=== PATIENT | male | born 1955 ===

== ENCOUNTER 2024-03-26 06:21 | Inpatient (IN) | payer OTHER, SELFPAY ==
[2024-03-26] VITALS (19 sets, daily range): BP systolic 110–127; BP diastolic 70–100; BMI 29.1
[2024-03-26 01:52] LABS: % Basophils 0.3 % (0-2); % Eosinophils 3.2 % (0-6); % Immature Granulocytes 0.3 % (0-0.5); % Lymphocytes 21.3 % (20.5-51.1); % Monocytes 13.4 % (1.7-9.3); % Neutrophils 61.5 % (42.2-75.2); Absolute Eosinophils 0.2 10^3/uL (0-0.7); Absolute Lymphocytes 1.5 10^3/uL (1.2-3.4); Absolute Monocytes 0.9 10^3/uL (0.1-0.6); Absolute Neutrophils 4.3 10^3/uL (1.4-6.5); Hematocrit 39.1 % (39.0-52.0); Hemoglobin 13.9 g/dL (13.0-18.0); Mean Corp Hgb Conc. 35.5 g/dL (33.0-37.0); Mean Corpuscular Hgb 32.9 pg (27.0-31.0); Mean Corpuscular Volume 92.7 fL (80.0-94.0); Mean Platelet Volume 11.1 fL (7.4-10.4); Nucleated Red Blood Cells % 0 % (-); Platelet Count 211 10^3/uL (130-400); Red Blood Cell Count 4.22 10^6/uL (4.70-6.10); Red Cell Dist. Width 12.9 % (11.5-14.5); White Blood Cell Count 6.9 10^3/uL (4.8-10.8)
[2024-03-26 02:18] LABS: ALT (SGPT) 29 U/L (0-50); AST (SGOT) 29 U/L (17-59); Alkaline Phosphatase 122 U/L (38-126); Blood Urea Nitrogen 15 mg/dl (9-20); Calcium 9.2 mg/dl (8.4-10.2); Carbon Dioxide 21 mmol/L (22-30); Chloride 106 mmol/L (98-107); Glucose 114 mg/dl (70-99); Potassium 4.1 mmol/L (3.5-5.1); Sodium 138 mmol/L (135-145); Total Bilirubin 0.2 mg/dl (0.2-1.3); Total Protein 6.3 g/dl (6.3-8.2); eGFR > 60.00
--- NOTE | 2024-03-26 03:12 | ED.GENMED ---
History of Present Illness
General
Chief Complaint: Rectal Bleeding
Source: patient, spouse and other (Colonoscopy September 2019 showing internal hemorrhoids, single large mouth diverticulum.)
Exam Limitations: none
Time Seen by Provider: 03/26/24 02:59
Nursing documentation reviewed up to this point in time: agreed with
History of Present Illness
History of Present Illness:
This is a 69-year-old gentleman with history of epilepsy, palpitations maintained on Dilantin and atenolol. He complains of large amount of bright red rectal bleeding that initially began yesterday morning after passing a somewhat hard stool. He
was evaluated by his PCP yesterday morning who recommended outpatient blood work and urgent GI evaluation. He presents to the ED tonight after passing a large loose bloody bowel movement this evening and then another moderate-sized bloody bowel
movement since arrival to the ED. He admits to mild crampy lower abdominal discomfort.
No prior history of GI bleeds. He takes no anticoagulants.
Previous colonoscopy September 2019 showing internal hemorrhoids and a single large mouth diverticulum.
He denies dizziness nor lightheadedness, no chest pain or cough no shortness of breath.
Past History
Past History
ED Past Medical History: Arrthythmia (History of palpitations/rapid heart rate. Maintained on atenolol.), Cancer (Melanoma of arm) and Seizures
ED Past Surgical History: Other (Melanoma of arm with right axillary node dissection 2006)
Social History
Tobacco: Non-smoker
Alcohol: Daily
Drug: None
Personal:
Living: with family
Employment: Retired
Family History
Family History: Cancer (Colon cancer in father)
Phy Exam
Physical Exam
Physical Exam:
GENERAL: Alert , in no apparent distress. 69-year-old gentleman appears his stated age, awake and alert, pleasant, appears in no acute distress. is accompanying.
EYE: pupils equal and reactive. anicteric
NECK: Supple, nontender, no meningismus, no significant adenopathy.
ENT: oral mucosa is moist. No rhinorrhea.
CARDIAC: Regular rate and rhythm. no murmur.
LUNGS: Clear breath sounds bilaterally, no acute respiratory distress, no wheezes/rales/rhonchi
ABDOMEN: Soft, nondistended, mild generalized tenderness to the lower abdomen with deep palpation only, no r/g, no cvat. normoactive BS. Rectal exam reveals maroon to bright red blood per vault that is heme positive. No rectal masses.
NEUROLOGICAL: Alert and oriented x3, no focal neuro deficits.
SKIN: Warm and dry, normal color, skin intact. No rash.
MUSCULOSKELETAL: No C/C/E. peripheral pulses are full and equal b/l. No palpable tenderness.
PSYCH: Normal and appropriate interaction.
Course
Orders/Labs/Results
Orders:
Orders
03/26/24 01:44
CMP [Comprehensive Metabolic Panel] Urgent
Complete Blood Count/With Diff Urgent
03/26/24 03:11
CT Angio Abd/Pelvis w/wo IV [CT Abd/pelvis Angio W/wo Iv] Urgent
Comment:
Reason For Exam: rectal bleeding, lower abd pain
0.9% Sodium Chloride 1000 ml [Nss] 1,000 ml IV BOLUS
03/26/24 03:19
Type And Crossmatch [Type+Screen] Urgent
03/26/24 04:07
ABO2 Urgent
BBK Wristband Number:
Associate notified that ABO2 has been ordered: [id number]
Date: 03/26/24
Time: 03:59
Office Runner ID: [id number]
Abnormal Lab Results
03/26/24
01:44
RBC 4.22 L 10^6/uL
(4.70-6.10)
MCH 32.9 H pg
(27.0-31.0)
MPV 11.1 H fL
(7.4-10.4)
Absolute Monos (auto) 0.9 H 10^3/uL
(0.1-0.6)
Monocytes % 13.4 H %
(1.7-9.3)
Carbon Dioxide 21 L mmol/L
(22-30)
Glucose 114 H mg/dl
(70-99)
03/26/24 01:44
03/26/24 01:44
Vital Signs
Initial and Last Documented VS:
Initial Vital Signs
Temp Pulse Resp BP Pulse Ox
98.5 F 110 20 122/84 97
03/26/24 01:34 03/26/24 01:34 03/26/24 01:34 03/26/24 01:34 03/26/24 01:34
Last Documented Vital Signs
Temp Pulse Resp BP Pulse Ox
98.5 F 82 17 124/72 99
03/26/24 01:34 03/26/24 04:30 03/26/24 04:30 03/26/24 04:00 03/26/24 04:30
MDM/Problems Addressed
Differential Diagnosis Includes:
Patient presents with acute rectal bleeding, having passed 3 large bright red to maroon liquid stools. Concern for internal hemorrhoidal bleeding, other consideration is diverticular bleed.
Thus far hemodynamically stable.
CBC within normal limits.
Will initiate IV fluids. Will check CT angiogram of the abdomen and pelvis.
Due to increased bleeding this evening passing to large bloody bowel movements tonight and continued crampy abdominal pain, concern for continued bleeding and patient is at risk for acute blood loss anemia/symptomatic anemia.
*Radiology
Radiology exam reviewed: radiology read reviewed (CTA abdomen/pelvis somewhat limited without arterial phase imaging. No definite contrast extravasation within the bowel to suggest active hemorrhage. No diverticulitis.)
*Pulse Oximetry
Patient hypoxic: no
*Grain Operations Manager Interpretation
Rate: normal
Interpretation: normal
Rhythm: sinus
*Critical Care Note
Total Time (30-74mins, 75-104mins- exclusive of procedures): Not Applicable
ED Attending Note
-
Portions of this chart may have been created with voice recognition software.� Occasional wrong word or��sound alike� substitutions may have occurred due to the inherent limitations of voice recognition software.
Discharge Plan
Departure
Patient Disposition: Admit
Date of Disposition: 03/26/24
Time of Disposition: 05:36
Admit to: Med/Surg
Admit to doctor: Darío
Presentation/result/management discussed w/ accepting MD/DO: Hospitalist
Condition: Fair
Discharge Problem:
Acute lower gastrointestinal bleeding
Prescriptions:
No Action
atenolol 25 mg Tablet
25 mg PO DAILY
phenytoin sodium extended [Dilantin Extended] 100 mg Capsule
300 mg PO DAILY
Referrals:
Yariel Hopper PA [Family Provider] -
Interventions
Interventions:
*Risk Screen - Suicide Last Done: 03/26/24 01:34
*General Assessment Last Done: 03/26/24 03:36
*Neglect/Abuse Screening Last Done: 03/26/24 01:34
ED- Fall Risk Assessment Last Done: 03/26/24 03:33
*ED COVID-19 Vaccine History Last Done: 03/26/24 03:33
RO-Zrrqmi-Voqzavoyex Assessment Last Done: 03/26/24 03:33
ED- Cardiac Assessment Last Done: 03/26/24 03:33
ED- Pulmonary Assessment Last Done: 03/26/24 03:33
Discharge Date and Time
Print Language: [id number]
[2024-03-26] MEDS: NSS 1000 IV (03:31)
--- NOTE | 2024-03-26 05:58 | HPS.HSE ---
Family Physician
-
Family Physician: RUDDY Gallo
Chief Complaint
-
BRBPR
History of Present Illness
Patient is a 69y M with PMH significant for hypertension, seizure disorder and melanoma who presents to ED complaining of BRBPR. Patient states that he developed crampy abdominal discomfort / abrupt urge to move his bowels early in the day
today. He had a loose BM and noted some bright red blood in the toilet and on the toilet paper. He denies any lightheadedness, dizziness, dyspnea, chest pain, etc. No fevers / chills. No N/V. No abdominal pain.
He was seen by his PCP and labs were ordered for follow-up.
This evening, patient had another episode of abrupt onset of crampy discomfort followed by a larger, more grossly bloody bowel movement.
Again, he had no associated symptoms. With second episode of bloody stool, patient presented to the ED for further evaluation.
Here in the ED patient is resting comfortably with no complaints.
He denies any prior history of similar symptoms / bleeding.
He does note that he had been constipated for the past several days and has been doing some straining as a result. He has not taken any medications, laxatives, etc.
His most recent colonoscopy was in 2019 and revealed internal hemorrhoids and a single diverticulum.
Medical History
Past Medical History
Past Medical History: Reports Other
Additional Past Medical History:
Seizure Disorder (last seizure activity 30+ years ago)
Hypertension
Melanoma
Colon Polyp
Past Surgical History: Reports Other
Additional Past Surgical History:
Melanoma Excision
RUE Lymph Node Dissection
Social History
Tobacco: Non-smoker
Alcohol: Daily (2-3 glasses of wine daily.)
Drug: None
Family History
Family History: Not pertinent
Allergies / Home Medications
Allergies reflects when Allergies were last updated in [facility].
Home Medications with original date entered in [facility]
Allergy/Medication List:
Allergies
Allergy/AdvReac Type Severity Reaction Status Date / Time
aspirin Allergy Rash Verified 03/26/24 01:37
tetracycline [Tetracycline] Allergy Rash Verified 03/26/24 01:37
Home Medications
atenolol 25 mg tablet 25 mg PO DAILY 03/26/24
phenytoin sodium extended 100 mg capsule (Dilantin Extended) 300 mg PO DAILY 03/26/24
Review of Systems
-
History Source: Patient
A 12 point ROS was completed and negative except as noted: Yes
Constitutional: Denies Fever, Fatigue or Chills
Respiratory: Denies Cough or Hemoptysis
Cardiac: Denies Chest Pain or Palpitations
Abdomen/GI: Reports Diarrhea and Bloody Stools; Denies Abdominal Pain, Nausea, Vomiting or Anorexia
: Denies Dysuria or Frequency
Musculoskeletal: Denies Joint Pain or Edema
Neurological: Denies Dizzy or Headache
Psych: Denies Depression or Anxiety
Physical Exam
Vital Signs
Vital Signs
Temp Pulse Resp BP Pulse Ox
98.5 F 81 14 125/70 100
03/26/24 01:34 03/26/24 05:45 03/26/24 05:30 03/26/24 05:04 03/26/24 05:30
Physical Exam
General: Other (69y M in no acute distress.)
HEENT: Moist mucous membranes
Respiratory: Clear; No Wheezes, Rales or Rhonchi
Cardiac: S1/S2 and Regular Rhythm; No Murmur
GI: Soft, Non Tender, Non Distended and Normal Bowel Sounds
Musculoskeletal: No Clubbing, No Cyanosis and No Edema
Neuro: AO x 3
Laboratory Results
-
03/26/24 01:44
03/26/24 01:44
Laboratory Results
Total Bilirubin 0.2 mg/dl (0.2-1.3) 03/26/24 01:44
AST 29 U/L (17-59) 03/26/24 01:44
ALT 29 U/L (0-50) 03/26/24 01:44
Alkaline Phosphatase 122 U/L (38-126) 03/26/24 01:44
Impression/Plan
-
A/P: Patient is a 69y M with PMH significant for melanoma, hypertension and seizure disorder who presents to ED for evaluation of BRBPR x 2 episodes in the past 24 hours.
BRBPR
- Admit for further evaluation and treatment.
- Patient described BRB in the toilet and on the toilet paper.
- Likely hemorrhoidal or diverticular in origin.
- ? infectious or ischemic etiologies.
- Hgb stable / at baseline. No associated symptoms, hypotension, etc.
- Follow for any recurrent bleeding.
- Follow H&H, vital signs, etc.
- GI evaluation for additional recommendations.
Seizure Disorder
- Stable. Continue long-standing dose of Dilantin without changes.
Benign Hypertension
- Stable. Continue atenolol with holding parameters.
DVT Prophylaxis: SCDs
Code Status: Full
[2024-03-26 06:30] LABS: Hemoglobin 12.4 g/dL (13.0-18.0)
[2024-03-26] MEDS: DILANTIN 300 MG PO (07:13)
[2024-03-26] MEDS: LR 1000 IV (07:18)
[2024-03-26] MEDS: TENORMIN PO (08:22)
--- NOTE | 2024-03-26 09:59 | CON.GI ---
Addendum entered and electronically signed by Myaa Pendleton DO 03/26/24 12:59:
The patient was seen and examined by me independently in collaboration with the nurse practitioner.
Past medical history/social history/medications/allergies/family history reviewed.
Lab data and imaging data reviewed.
Briefly, Carlton Keen is a 69 y.o. male with pmhx melanoma, lymphedema, HTN, seizure disorder, etoh use, colon polyps who presents with painless large volume hematochezia. At first, small volume, followed by large bloody BM, mostly water, filling
toilet bowel. He continues to have episodes in the ER. He does admit to chronic constipation, had some small pellet like stool this morning. Denies blood thinners or NSAID use. Last colonoscopy 09/[address] Nicholson, colon polyps in 2017. Hgb 13.9
--> 12.4. Suspect hgb lagging behind.
Presentation suspicious for diverticular bleed vs. AVM vs. [place]ul[place]oy vs. hemorrhoidal vs. ulcer vs. polyp vs. malignancy. Given patient due for surveillance colonsocopy this year, recommend pursuing inpatient evaluation, performing colonoscopy
tomorrow. Patient agreeable.
Clear liquid diet and colon prep today, NPO PMN for colonoscopy tomorrow.
Original Note:
Consultation
-
Date/Time Consultation Requested: 03/26/24 0650
Date/Time Consultation Performed: 03/26/24 1000
Requesting Provider: Henrik Chanel DO
Performing Provider: JUWAN Banks, Alanna Pendleton DO
Reason for Consultation: rectal bleeding
Medical History
Chief Complaint / HPI
Chief Complaint: rectal bleeding
History of Present Illness:
Pt is a 69yo with hx melanoma with lymphedema - arm, basal cell with prior Mohs surgery, HTN, seizure disorder(last 30 years ago), daily ETOH use, colon polyps with onset of rectal bleeding. In review with patient has some red blood 1/13 AM and
went to PCP but then increased bleeding later that day then continued and presents to ER for evaluation. On admission Ct angio completed with no active gastrointestinal hemorrhage during the course of the examination. Last colonoscopy 09/[address] Brandon with non bleeding hemorrhoids and due 5 years follow up.
At this time patient admits to some recent constipation with rare diarrhea. He also admits to occasional GERD but denies dysphagia, nausea, vomiting, or black stools.No NSAID or anticoagulation use.
Past Medical History
Past Medical History: Cancer (melanoma, basal cell), HTN, Seizures and Other (diverticulosis, fatty liver, lymphedema with melanoma removal, lyme disease )
Past Surgical History: Other (mohs surgery)
Social History
Tobacco: Non-Smoker
Alcohol: Daily (3 glasses of wine daily)
Drug: None
Personal:
Living: With Family
Employment: Retired
Family History
Family History: Other (father with colon CA)
Allergies / Home Medications
Allergy/AdvReac Type Severity Reaction Status Date / Time
aspirin Allergy Rash Verified 03/26/24 01:37
tetracycline [Tetracycline] Allergy Rash Verified 03/26/24 01:37
�Medication �Instructions �Recorded
atenolol 25 mg tablet 25 mg PO DAILY 03/26/24
cholecalciferol (vitamin D3) 25 25 mcg PO DAILY 03/26/24
mcg (1,000 unit) tablet (Vitamin
D3)
phenytoin sodium extended 100 mg 300 mg PO DAILY 03/26/24
capsule (Dilantin Extended)
therapeutic multivitamin 1 tab PO DAILY 03/26/24
Review of Systems
-
History Source: Patient
Constitutional: Reports No Symptoms
EENT: Reports No Symptoms
Respiratory: Reports No Symptoms
Cardiac: Reports No Symptoms
Abdomen/GI: Reports Constipated and Bloody Stools
: Reports Frequency
Musculoskeletal: Reports No Symptoms
Skin: Reports No Symptoms
Neurological: Reports No Symptoms
Endocrine: Reports No Symptoms
Hematologic/Lymphatic: Reports Bleeding
Vital Signs
Temp Pulse Resp BP Pulse Ox
98.5 F 83 17 111/72 97
03/26/24 01:34 03/26/24 09:15 03/26/24 09:15 03/26/24 09:00 03/26/24 09:15
Physical Exam
Exam
General: Well Developed, Well Nourished and No Apparent Distress
HEENT: Normocephalic
Respiratory: Clear
Cardiac: Regular Rhythm
GI: Soft, Non Tender and Non Distended
Rectal: Other (ER rectal maroon to bright red )
Musculoskeletal: No Clubbing and No Cyanosis
Skin: Warm and Dry
Neuro: Awake, Alert and AO x 3
Psych: Calm
Results
WBC 6.9 10^3/uL (4.8-10.8) 03/26/24 01:44
Hgb 12.4 g/dL (13.0-18.0) L 03/26/24 06:18
Hct 35.0 % (39.0-52.0) L 03/26/24 06:18
MCV 92.7 fL (80.0-94.0) 03/26/24 01:44
Plt Count 211 10^3/uL (130-400) 03/26/24 01:44
Absolute Neuts (auto) 4.3 10^3/uL (1.4-6.5) 03/26/24 01:44
Sodium 138 mmol/L (135-145) 03/26/24 01:44
Potassium 4.1 mmol/L (3.5-5.1) 03/26/24 01:44
Chloride 106 mmol/L (98-107) 03/26/24 01:44
Carbon Dioxide 21 mmol/L (22-30) L 03/26/24 01:44
BUN 15 mg/dl (9-20) 03/26/24 01:44
Creatinine 0.8 mg/dL (0.7-1.3) 03/26/24 01:44
Calcium 9.2 mg/dl (8.4-10.2) 03/26/24 01:44
Total Bilirubin 0.2 mg/dl (0.2-1.3) 03/26/24 01:44
AST 29 U/L (17-59) 03/26/24 01:44
ALT 29 U/L (0-50) 03/26/24 01:44
Alkaline Phosphatase 122 U/L (38-126) 03/26/24 01:44
Diagnostic Image Results:
03/26/24 CTA-- There was no active gastrointestinal hemorrhage during the course of the examination
Prior GI Procedures:
EGD: none
Colonoscopy: 09/[address] Brandon with non bleeding hemorrhoids
prior colonoscopy with multiple polyps including SSA
Assessment / Plan
-
Pt is a 69yo with hx melanoma with lymphedema - arm, basal cell with prior Mohs surgery, HTN, seizure disorder(last 30 years ago), daily ETOH use, colon polyps with onset of rectal bleeding. In review with patient has some red blood 1/ AM and
went to PCP but then increased bleeding later that day then continued and presents to ER for evaluation. On admission Ct angio completed with no active gastrointestinal hemorrhage during the course of the examination. Last colonoscopy 09/[address] Brandon with non bleeding hemorrhoids and due 5 years follow up.
-rectal bleeding
-recent constipation
-daily ETOH use 3 glasses wine daily
-hx colon polyps
-hx diverticulosis per prior colonoscopy
other med problems:
-melanoma with arm lymphedema
-basal cell CA with prior Mohs surgery
-HTN
-seizure disorder-last seizure 30 years ago)
-family hx colon CA -father
PLAN:
etiology of bleeding related to diverticular bleeding, hemorrhoids vs other
still with some bleeding this am
CTA neg
trend stool pattern and hbg 13.9- 12.4 after admission
will review with Dr. Pendleton for colonoscopy
-
-
-
Thank you for consultation and allowing me to participate in the patient's care. Please call the technology education instructor GI physician during the after hours with any questions or concerns.
[2024-03-26] MEDS: DULCOLAX 10 MG PO (11:12)
--- NOTE | 2024-03-26 12:15 | W.PN.HOSP.TC ---
Today's Communication/Plan
-
Monitor vital signs see plan
Continue to monitor hemoglobin
GI following; clears for now
Nonbillable note
Assessment / Plan
Assessment / Plan
General: Other (69y M in no acute distress.)
HEENT: Moist mucous membranes
Respiratory: Clear; No Wheezes, Rales or Rhonchi
Cardiac: S1/S2 and Regular Rhythm; No Murmur
GI: Soft, Non Tender, Non Distended and Normal Bowel Sounds
Musculoskeletal: No Clubbing, No Cyanosis and No Edema
Neuro: AO x 3
BRBPR/rectal bleeding likely secondary to lower GI bleed from hemorrhoids or diverticulosis
2 more episodes this morning, continue to monitor vital sign hemoglobin
GI following
CT negative for acute bleed
He is due for colonoscopy, defer to GI
Started on clears for now
Seizure Disorder
- Stable. Continue long-standing dose of Dilantin without changes.
Benign Hypertension
- Stable. Continue atenolol with holding parameters.
DVT Prophylaxis: SCDs
Code Status: Full
Anticipated Discharge: 24 - 48 hours
Subjective/Interval History
-
Date of Service: March 26, 2024
Denies pain
Objective Data
-
Labs:
Laboratory Results
03/26/24 03/26/24 03/26/24
01:44 06:18 14:15
WBC 6.9
Hgb 13.9 12.4 L Pending
Hct 39.1 35.0 L Pending
Plt Count 211
Sodium 138
Potassium 4.1
Chloride 106
Carbon Dioxide 21 L
BUN 15
Creatinine 0.8
Glucose 114 H
Calcium 9.2
Total Bilirubin 0.2
AST 29
ALT 29
Alkaline Phosphatase 122
03/26/24
22:15
WBC
Hgb Pending
Hct Pending
Plt Count
Sodium
Potassium
Chloride
Carbon Dioxide
BUN
Creatinine
Glucose
Calcium
Total Bilirubin
AST
ALT
Alkaline Phosphatase
Vital Signs:
Vital Signs
Temp Pulse Resp BP Pulse Ox
98.5 F 76 16 110/78 99
03/26/24 01:34 03/26/24 11:01 03/26/24 11:01 03/26/24 11:00 03/26/24 11:01
[2024-03-26] MEDS: NULYTELY SOLUTION 4 LITERS PO (17:05)
[2024-03-26 17:22] LABS: Iron 112 ug/dl (49-181)
[2024-03-26 17:33] LABS: Percent Saturation 52 % (20-50); Total Iron Binding Capacity 215 ug/dl (261-462)
[2024-03-26 20:00] LABS: Hematocrit 32.1 % (39.0-52.0); Hemoglobin 11.5 g/dL (13.0-18.0)
[2024-03-27] VITALS (11 sets, daily range): BP systolic 94–119; BP diastolic 57–74; BMI 29.4
[2024-03-27] MEDS: LR 1000 IV (02:07)
[2024-03-27 03:01] LABS: Hematocrit 28.4 % (39.0-52.0); Hemoglobin 10.2 g/dL (13.0-18.0)
[2024-03-27 06:45] LABS: INR 1.06; PT 14.1 Sec (11.4-14.6)
[2024-03-27 07:07] LABS: Blood Urea Nitrogen 10 mg/dl (9-20); Calcium 8.8 mg/dl (8.4-10.2); Carbon Dioxide 25 mmol/L (22-30); Chloride 106 mmol/L (98-107); Estimated Creatinine Clearance 114 ml/min; Glucose 109 mg/dl (70-99); Sodium 135 mmol/L (135-145); eGFR > 60.00
[2024-03-27 07:25] LABS: % Basophils 0.2 % (0-2); % Eosinophils 1.3 % (0-6); % Immature Granulocytes 0.2 % (0-0.5); % Lymphocytes 18.3 % (20.5-51.1); % Monocytes 10.4 % (1.7-9.3); % Neutrophils 69.6 % (42.2-75.2); Absolute Eosinophils 0.1 10^3/uL (0-0.7); Absolute Monocytes 0.5 10^3/uL (0.1-0.6); Absolute Neutrophils 3.6 10^3/uL (1.4-6.5); Hematocrit 28.6 % (39.0-52.0); Hemoglobin 10.1 g/dL (13.0-18.0); Mean Corp Hgb Conc. 35.3 g/dL (33.0-37.0); Mean Corpuscular Hgb 33.1 pg (27.0-31.0); Mean Corpuscular Volume 93.8 fL (80.0-94.0); Nucleated Red Blood Cells % 0 % (-); Red Blood Cell Count 3.05 10^6/uL (4.70-6.10); Red Cell Dist. Width 13.2 % (11.5-14.5); White Blood Cell Count 5.2 10^3/uL (4.8-10.8)
[2024-03-27] MEDS: LR IV (07:40)
[2024-03-27] MEDS: DILANTIN 300 MG PO (08:27)
[2024-03-27] MEDS: TENORMIN 25 MG PO (08:28)
--- NOTE | 2024-03-27 11:11 | W.PN.HOSP.TC ---
Today's Communication/Plan
-
monitor vitals
see plan
Doing well after colonoscopy
Discharge today
GI follow-up outpatient
Time of discharge 36-minutes
Assessment / Plan
Assessment / Plan
General: Other (69y M in no acute distress.)
HEENT: Moist mucous membranes
Respiratory: Clear; No Wheezes, Rales or Rhonchi
Cardiac: S1/S2 and Regular Rhythm; No Murmur
GI: Soft, Non Tender, Non Distended and Normal Bowel Sounds
Musculoskeletal: No Clubbing, No Cyanosis and No Edema
Neuro: AO x 3
BRBPR/rectal bleeding likely secondary to lower GI bleed from hemorrhoids or diverticulosis
Anemia likely secondary to acute blood loss from GI
Status post colonoscopy today with diverticulosis, nonbleeding internal hemorrhoids. Anusol on discharge
Patient will need screening colonoscopy in 1 year, patient aware
Follow-up with GI outpatient
Hemoglobin stable, wants to go home. Discharge today
Seizure Disorder
- Stable. Continue long-standing dose of Dilantin without changes.
Benign Hypertension
- Stable. Continue atenolol with holding parameters.
DVT Prophylaxis: SCDs
Code Status: Full
Anticipated Discharge: Today
Subjective/Interval History
-
Date of Service: March 27, 2024
Denies pain
Objective Data
-
Labs:
Laboratory Results
03/27/24 03/27/24 03/27/24
02:16 06:03 07:02
WBC Cancelled 5.2
Hgb 10.2 L Cancelled 10.1 L
Hct 28.4 L Cancelled 28.6 L
Plt Count Cancelled
PT 14.1
INR 1.06
Sodium 135
Potassium 4.0
Chloride 106
Carbon Dioxide 25
BUN 10
Creatinine 0.7
Glucose 109 H
Calcium 8.8
Vital Signs:
Vital Signs
Temp Pulse Resp BP Pulse Ox
98.6 F 62 13 101/61 100
03/27/24 11:00 03/27/24 11:00 03/27/24 11:00 03/27/24 11:00 03/27/24 10:42
--- NOTE | 2024-03-27 11:24 | SUR.PHASEI ---
Dr Marx in to see pt at bedside.
--- NOTE | 2024-03-27 11:34 | W.DCSUMMARY ---
Discharge Summary
Discharge Data
Date of Admission: 03/26/24
Date of Discharge: 03/27/24
-
Pending Results: No
Hospital Course
69-year-old male with past medical history of diverticulosis, hemorrhoids, seizure disorder, hypertension came to the hospital with rectal bleeding. Patient was seen by gastroenterology and was taken for colonoscopy which showed diverticulosis and
nonbleeding internal hemorrhoids. Gastroenterology recommended patient for Anusol suppository upon discharge for his hemorrhoids. Patient was also instructed to get repeat colonoscopy in 1 year for screening. Patient hemoglobin and vital signs
were stable throughout hospitalization. Post colonoscopy, patient did not had any further bleeding and felt safe to go home. Patient was then discharged home with instructions to follow-up with all his physicians outpatient.
Discharge Plan
-
Patient Disposition: Home (Routine Discharge)
Discharge Diagnosis/Procedures: GI bleeding likely secondary to diverticulosis
Nonbleeding internal hemorrhoids
Diet: Low Residue
Activity: As tolerated
Driving Restrictions: As prior to admission
Bathing Restrictions: None
Referrals:
Yariel Hopper PA [Family Provider] - in less than 1 week
Maya Pendleton DO [Active] -
Prescriptions:
New
hydrocortisone acetate [Anusol-HC] 25 mg suppository
25 mg LA DAILY Qty: 12 0RF
Continued
atenolol 25 mg Tablet
25 mg PO DAILY
phenytoin sodium extended [Dilantin Extended] 100 mg Capsule
300 mg PO DAILY
therapeutic multivitamin Tablet
1 tab PO DAILY
cholecalciferol (vitamin D3) [Vitamin D3] 25 mcg (1,000 unit) Tablet
25 mcg PO DAILY
Discharge Orders:
Discharge Patient (As Directed); Ordered 03/27/24
Ordered By: Nehemiah Marx
Discharge Date and Time
Discharge Date/Time: 03/27/24 12:14
Print Language: YAKUT
== END 2024-03-27 12:14 | disposition home or self-care (01) | DRG 378 ==
LOC: PACUI 06:21
PROVIDERS: Nurse Practitioner Adult Health; Nurse Practitioner Family; ADMITTING PHYSICIAN Hospitalist; ATTENDING PHYSICIAN Internal Medicine; EMERGENCY PHYSICIAN Emergency Medicine; FAMILY PHYSICIAN Physician Assistant; OTHER PHYSICIAN Internal Medicine
PROC: 0DBN8ZZ Excision of Sigmoid Colon, Via Natural or Artificial Opening Endoscopic (ICD-10-PCS; 2024-03-26)
DX: K57.31 Diverticulosis of large intestine without perforation or abscess with bleeding (principal); D62 Acute posthemorrhagic anemia; K64.8 Other hemorrhoids; I10 Essential (primary) hypertension; G40.909 Epilepsy, unspecified, not intractable, without status epilepticus; K21.9 Gastro-esophageal reflux disease without esophagitis; K63.5 Polyp of colon; Z88.6 Allergy status to analgesic agent; Z88.1 Allergy status to other antibiotic agents; Z85.820 Personal history of malignant melanoma of skin; Z80.0 Family history of malignant neoplasm of digestive organs
CPT/HCPCS: 88305; 74174; 80048; 80053; 83540; 83550; 85014; 85018; 85025; 85610; 86850; 86900; 86901; Q9967